=== PATIENT | male | born 1995 | race Caucasian/White ===

== ENCOUNTER 2017-10-22 12:56 | Inpatient (IN) | payer SELFPAY ==
[~2017-10-22] VITALS: Ht 182.9 cm; Wt 88.6 kg
[2017-10-22 14:36] LABS: ALBUMIN 4.1 g/dL (3.4-5.0); ALKALINE PHOSPHATASE 82 U/L (46-116); ALT (SGPT) 36 U/L (10-68); BILIRUBIN - TOTAL 0.58 mg/dL (0.2-1.3); CALC OSMOLALITY 270 mosm/kg (275-300); CALCIUM 9.3 mg/dL (8.5-10.1); CARBON DIOXIDE 27.4 mmol/L (21.0-32.0); CHLORIDE - SERUM 99 mmol/L (98-107); GLUCOSE 101 mg/dL (74-106); POTASSIUM - SERUM 4.1 mmol/L (3.5-5.1); PROTEIN - SERUM 8.1 g/dL (6.4-8.2); SODIUM 136 mmol/L (136-145); UREA NITROGEN 9 mg/dL (7-18); eGFR NON AFRICAN AMERICAN > 90 mL/min (90-120)
[2017-10-22 14:55] LABS: WBC 25.2 10x3/uL (4.8-10.8)
[2017-10-22 14:56] LABS: HEMATOCRIT 40.7 % (42.0-54.0); HEMOGLOBIN 13.9 g/dL (13.5-17.5); MCH 31.3 pg (26.0-34.0); MCHC 34.2 g/dL (31.0-37.0); MCV 91.7 fL (80.0-100.0); MEAN PLATELET VOLUME 8.9 fL (7.4-10.4); PLATELET COUNT 252 10x3/uL (130-400); RBC 4.44 10x6/uL (4.20-6.10); RDW 12.7 % (11.5-14.5)
[2017-10-22 16:58] LABS: BASOPHILS 2 % (0-2); LYMPHOCYTES 7 % (15-50); MONOCYTES 3 % (2-11); NEUTROPHILS 82 % (40-80); PLATELET ESTIMATE NORMAL
[2017-10-22 18:21] LABS: MAGNESIUM - SERUM 2.1 mg/dL (1.8-2.4)
[2017-10-22 18:45] LABS: C-REACTIVE PROTEIN 31.4 mg/dL (0.0-0.9)
[2017-10-22 19:31] LABS: ERYTHROCYTE SEDIMENTATION RATE 39 mm/hr (0-15)
[2017-10-23 08:07] LABS: BASOPHILS 0 % (0-2); EOSINOPHILS 0 % (0-7); HEMATOCRIT 38.9 % (42.0-54.0); HEMOGLOBIN 13.3 g/dL (13.5-17.5); IMMATURE GRANULOCYTES 0.4 % (0-5); LYMPHOCYTES 3.8 % (15-50); MCH 31.1 pg (26.0-34.0); MCHC 34.2 g/dL (31.0-37.0); MCV 90.9 fL (80.0-100.0); MEAN PLATELET VOLUME 8.7 fL (7.4-10.4); MONOCYTES 1.9 % (2-11); NEUTROPHILS 93.9 % (40-80); PLATELET COUNT 236 10x3/uL (130-400); RBC 4.28 10x6/uL (4.20-6.10); RDW 12.7 % (11.5-14.5); WBC 22.4 10x3/uL (4.8-10.8)
[2017-10-23 08:19] LABS: CALC OSMOLALITY 278 mosm/kg (275-300); CALCIUM 8.7 mg/dL (8.5-10.1); CARBON DIOXIDE 22.6 mmol/L (21.0-32.0); CHLORIDE - SERUM 104 mmol/L (98-107); GLUCOSE 145 mg/dL (74-106); POTASSIUM - SERUM 3.9 mmol/L (3.5-5.1); SODIUM 138 mmol/L (136-145); eGFR NON AFRICAN AMERICAN > 90 mL/min (90-120)
[2017-10-23 08:21] LABS: UREA NITROGEN 12 mg/dL (7-18)
[2017-10-23 15:14] VITALS: BP 128/79; Ht 182.9 cm; Wt 88.6 kg
[2017-10-23] MEDS ORDERED: AMOXICILLIN875 MG PO (15:58)
== END 2017-10-23 16:43 | disposition home or self-care (01) | DRG 153 ==
LOC: D.ER 12:56 → D.EDHOLD 22:37
PROVIDERS: Emergency Medicine; Family Medicine; Physician Assistant Medical
DX: J02.0 Streptococcal pharyngitis (principal); J03.90 Acute tonsillitis, unspecified